=== PATIENT | male | born 1940 | race Caucasian/White ===

== ENCOUNTER 2016-08-04 19:20 | Emergency (ER) | payer MEDICARE ==
[~2016-08-04] VITALS: Ht 172.7 cm; Wt 81.7 kg
[2016-08-04 19:25] VITALS: BP 152/96; PULSE 76; RESP 20; TEMP 98.8; O2SAT 97
[2016-08-04] MEDS ORDERED: SODIUM CHLORIDE 0.9% FLUSH 10 ML FLUSH IVF PRN (20:00)
[2016-08-04 20:26] LABS: AUTOMATED NEUTROPHIL # 4.7 TH/MM3 (1.8-7.7); BASOPHIL % 0.6 % (0.0-2.0); EOSINOPHIL # 0.2 TH/MM3 (0-0.4); EOSINOPHIL % 3.1 % (0.0-4.0); HEMATOCRIT 44.3 % (39.0-51.0); HEMO FLAGS DIFF FINAL; LYMPH % 26.7 % (9.0-44.0); MEAN CELL VOLUME 90.3 FL (80.0-100.0); MEAN CORPUSCULAR HEMOGLOBIN 30.4 PG (27.0-34.0); MEAN CORPUSCULAR HGB CONC 33.7 % (32.0-36.0); MONO % 8.5 % (0.0-8.0); NEUT % 61.1 % (16.0-70.0); PLATELET COUNT 232 TH/MM3 (150-450); RED CELL DISTRIBUTION WIDTH 12.5 % (11.6-17.2); WHITE BLOOD COUNT 7.5 TH/MM3 (4.0-11.0)
--- NOTE | 2016-08-04 20:27 | PD ---
HPI Chief Complaint: Anxiety Time Seen by Provider: 19:33 Travel History International Travel<30 days: No Contact w/Intl Traveler<30days: No Traveled to known affect area: No History of Present Illness HPI 76-year-old male with history of anxiety/panic attacks, here for evaluation after a panic attack. The patient was at dinner tonight when he started to have symptoms that were similar to his usual panic attacks. He reports feeling "fuzzy" all over. He took a 0.5 mg Xanax prior to coming to the emergency department. He states that his symptoms have significantly improved, however he was concerned because his symptoms usually last for about 15 minutes, and today they lasted for about 30 minutes. He denies chest pain or dyspnea. No abdominal pain. No fevers or chills. He is having some sinus congestion for the last 4 weeks. No other illness. No suicidal or homicidal ideation. PFSH Past Medical History Anxiety: Yes Depression: Yes Diminished Hearing: Yes GERD: Yes Hypertension: Yes Medical other: Yes (bph) Tetanus Vaccination: < 5 Years Influenza Vaccination: Yes Past Surgical History Cardiac Surgery: Yes (pacemaker) Genitourinary Surgery: Yes (bladder cancer:tumor removed) Pacemaker: Yes Social History Alcohol Use: Yes (occ) Tobacco Use: No Substance Use: No Allergies-Medications (Allergen,Severity, Reaction): Coded Allergies: Tetracycline (Verified Allergy, Intermediate, Rash, 08/04/16) Reported Meds & Prescriptions Reported Meds & Active Scripts Active Reported Mobic (Meloxicam) 15 Mg Tab 15 Mg PO DAILY PRN Fenofibrate 160 Mg Tab 160 Mg PO DAILY Tamsulosin (Tamsulosin HCl) 0.4 Mg Cap 0.4 Mg PO HS Mirtazapine 15 Mg Tab 15 Mg PO HS Wellbutrin Xl 24 HR (Bupropion HCl) 300 Mg Tab 300 Mg PO DAILY Omeprazole 20 Mg Tab 20 Mg PO DAILY Atenolol 25 Mg Tab 25 Mg PO BID Review of Systems Except as stated in HPI: all other systems reviewed are Neg Physical Exam Narrative GENERAL: Well-developed, well-nourished, comfortable, no acute distress. SKIN: Focused skin assessment warm/dry. No rash. HEAD: Atraumatic. Normocephalic. EYES: Pupils equal and round. No scleral icterus. No injection or drainage. ENT: Mucous membranes pink and moist. NECK: Trachea midline. No JVD. CARDIOVASCULAR: Regular rate and rhythm. No murmur appreciated. RESPIRATORY: No accessory muscle use. Clear to auscultation. Breath sounds equal bilaterally. GASTROINTESTINAL: Abdomen soft, non-tender, nondistended. MUSCULOSKELETAL: No obvious deformities. No clubbing. No cyanosis. No edema. NEUROLOGICAL: Awake and alert. No obvious cranial nerve deficits. Motor grossly within normal limits. Normal speech. PSYCHIATRIC: Appropriate mood and affect; insight and judgment normal. Data Data Last Documented VS Vital Signs Date Time Temp Pulse Resp B/P Pulse Ox O2 Delivery O2 Flow Rate FiO2 08/04/16 20:45 65 18 145/85 97 Room Air 08/04/16 19:25 98.8 Orders Electrocardiogram (08/04/16 19:50) Basic Metabolic Panel (Bmp) (08/04/16 19:50) Ckmb (Isoenzyme) Profile (08/04/16 19:50) Complete Blood Count With Diff (08/04/16 19:50) Magnesium (Mg) (08/04/16 19:50) Troponin I (08/04/16 19:50) Ecg Monitoring (08/04/16 19:50) Iv Access Insert/Monitor (08/04/16 19:50) Oximetry (08/04/16 19:50) Sodium Chloride 0.9% Flush (Ns Flush) (08/04/16 20:00) CKMB (08/04/16 20:00) CKMB% (08/04/16 20:00) Labs Laboratory Tests Test 08/04/16 20:00 White Blood Count 7.5 TH/MM3 Red Blood Count 4.90 MIL/MM3 Hemoglobin 14.9 GM/DL Hematocrit 44.3 % Mean Corpuscular Volume 90.3 FL Mean Corpuscular Hemoglobin 30.4 PG Mean Corpuscular Hemoglobin 33.7 % Concent Red Cell Distribution Width 12.5 % Platelet Count 232 TH/MM3 Mean Platelet Volume 7.9 FL Neutrophils (%) (Auto) 61.1 % Lymphocytes (%) (Auto) 26.7 % Monocytes (%) (Auto) 8.5 % Eosinophils (%) (Auto) 3.1 % Basophils (%) (Auto) 0.6 % Neutrophils # (Auto) 4.7 TH/MM3 Lymphocytes # (Auto) 2.0 TH/MM3 Monocytes # (Auto) 0.6 TH/MM3 Eosinophils # (Auto) 0.2 TH/MM3 Basophils # (Auto) 0.0 TH/MM3 CBC Comment DIFF FINAL Differential Comment Sodium Level 140 MEQ/L Potassium Level 3.9 MEQ/L Chloride Level 104 MEQ/L Carbon Dioxide Level 28.7 MEQ/L Anion Gap 7 MEQ/L Blood Urea Nitrogen 18 MG/DL Creatinine 1.30 MG/DL Estimat Glomerular Filtration 54 ML/MIN Rate Random Glucose 133 MG/DL Calcium Level 8.7 MG/DL Magnesium Level 2.0 MG/DL Total Creatine Kinase 345 U/L Creatine Kinase MB 7.9 NG/ML Creatine Kinase MB % 2.3 % Troponin I LESS THAN 0.02 NG/ML MDM Medical Decision Making Medical Screen Exam Complete: Yes Emergency Medical Condition: Yes Interpretation(s) EKG: Sinus, rate 73, normal axis, normal intervals, Q waves in inferior leads, no acute ischemic abnormality. Differential Diagnosis Panic attack, anxiety, metabolic abnormality, Narrative Course Vital signs reviewed. CBC is unremarkable. BMP is essentially unremarkable. Cardiac enzymes are negative. The patient was observed in the emergency department for an hour and a half and reports that he feels well. He was made aware of all findings. He'll like to be discharged home. Symptoms are very similar to previous panic attacks, however they lasted a little bit longer today than they usually do. He is stable for discharge home with outpatient follow-up with his primary care physician this week. He has a new prescription for Xanax coming in the mail in 2 days. He was informed on when to return to the emergency department. He verbalizes understanding and agreement with plan. Diagnosis Primary Impression: Panic attack Referrals: Primary Care Physician 3 days Additional Instructions: Follow-up with your primary care physician this week. Return to the emergency department for worsening symptoms or any other concerns. Disposition: DISCHARGE HOME Condition: Stable Benny Lui MD Aug 04, 2016 20:27
[2016-08-04 20:34] LABS: CHLORIDE 104 MEQ/L (98-107); POTASSIUM 3.9 MEQ/L (3.5-5.1); SODIUM (NA) 140 MEQ/L (136-145)
[2016-08-04 20:38] LABS: ANION GAP 7 MEQ/L (5-15); BICARBONATE 28.7 MEQ/L (21.0-32.0); BLOOD UREA NITROGEN 18 MG/DL (7-18)
[2016-08-04 20:41] LABS: GLOMERULAR FILTRATION RATE 54 ML/MIN (>89)
[2016-08-04 20:44] LABS: CREATINE KINASE 345 U/L (39-308)
[2016-08-04 20:45] VITALS: BP 145/85; PULSE 65; RESP 18; O2SAT 97
[2016-08-04 20:56] LABS: CKMB 7.9 NG/ML (0.5-3.6)
[2016-08-04] MEDS ORDERED: FENO160T PO (20:56)
[2016-08-04] MEDS ORDERED: MIRTA15 PO (20:56)
[2016-08-04] MEDS ORDERED: MOBI15TA PO (20:56)
[2016-08-04] MEDS ORDERED: OMEP20TA PO (20:56)
[2016-08-04] MEDS ORDERED: TAMS0.4C4 PO (20:56)
[2016-08-04] MEDS ORDERED: WELLTAB39 PO (20:56)
[2016-08-04] MEDS ORDERED: ATEN25TA PO (20:56)
[2016-08-04] MEDS ORDERED: ALPR0.25 PO (21:14)
[2016-08-04 21:22] VITALS: BP 127/80
--- NOTE | 2016-08-05 10:31 | EKG ---
Date Performed: 08/04/2016 Time Performed: 19:55:32 PTAGE: 76 years EKG: Sinus rhythm . Possible inferior infarct - age undetermined Abnormal ECG NO PREVIOUS TRACING DOCTOR: Eveline Hernandez Interpretating Date/Time 08/05/2016 10:26:27
== END 2016-08-04 21:23 | disposition home or self-care (01) ==
LOC: PHED 19:20
DX: F41.0 Panic disorder [episodic paroxysmal anxiety] (principal); R09.81 Nasal congestion; F41.9 Anxiety disorder, unspecified; F32.9 Major depressive disorder, single episode, unspecified; K21.9 Gastro-esophageal reflux disease without esophagitis; I10 Essential (primary) hypertension; Z79.899 Other long term (current) drug therapy
CPT/HCPCS: 80048; 82550; 82552; 83735; 84484; 85025; 93005